=== PATIENT | female | born 1955 | race Caucasian/White ===

== ENCOUNTER 2018-06-04 22:41 | Inpatient (IN) | payer BC, MEDICAID ==
[~2018-06-04] VITALS: Ht 167.6 cm; Wt 150.1 kg
[2018-06-04 23:38] LABS: MEAN CORPUSCULAR HEMOGLOBIN 31.1 pg (27.0-34.8); MEAN CORPUSCULAR HGB CONC 32.1 g/dL (32.4-35.8); MEAN CORPUSCULAR VOLUME 96.7 fL (80-100); MEAN PLATELET VOLUME 9.7 fL (7.4-10.4); PLATELET COUNT 175 x10^3/uL (130-400); RED BLOOD COUNT 3.34 x10^6/uL (3.82-5.3); RED CELL DISTRIBUTION WIDTH 16.5 % (9.6-15.2)
[2018-06-04 23:45] LABS: ALANINE AMINOTRANSFERASE 17 U/L (12-78); ALBUMIN 2.7 g/dL (3.4-5.0); ANION GAP 7 mmol/L (5-15); CALCIUM 8.7 mg/dL (8.5-10.1); CHLORIDE 107 mmol/L (98-107); CREATININE 1.24 mg/dL (0.55-1.02)
[2018-06-04 23:49] LABS: ALKALINE PHOSPHATASE 109 U/L (45-117); BILIRUBIN,TOTAL 0.4 mg/dL (0.2-1.0); TOTAL PROTEIN 7.7 g/dL (6.4-8.2); TROPONIN I 0.019 ng/mL (0.000-0.045)
[2018-06-05 00:23] LABS: BASOPHILS # (AUTO) 0.21 x10^3/uL (0-0.1); BASOPHILS % (AUTO) 1 % (0-1); EOSINOPHILS % (AUTO) 0 % (1-7); LYMPHOCYTES # (AUTO) 0.68 x10^3/uL (1-3.4); LYMPHOCYTES % (AUTO) 4 % (22-44); MD SCAN; MONOCYTES # (AUTO) 0.71 x10^3/uL (0.2-0.8); MONOCYTES % (AUTO) 4 % (2-9); NEUTROPHILS # (AUTO) 17.73 x10^3/uL (1.8-6.8); NEUTROPHILS % (AUTO) 92 % (42-75)
[2018-06-05] MEDS ORDERED: LEVOFLOXACIN/PMX 500MG/100ML 100 ML IV SCH (01:30)
[2018-06-05] MEDS ORDERED: METO-282 PO (01:31)
[2018-06-05] MEDS ORDERED: LISI-424 PO (01:31)
[2018-06-05] MEDS ORDERED: SERT20OR PO ×2 (01:32→01:33)
[2018-06-05] MEDS ORDERED: TEMA7.5C2 PO (01:33)
[2018-06-05] MEDS ORDERED: LEVOFLOXACIN/PMX 500MG/100ML 100 ML ONE (01:33)
[2018-06-05] MEDS ORDERED: SILD10SU PO (01:34)
[2018-06-05 01:47] LABS: MICROSCOPIC INDICATED
[2018-06-05 01:48] LABS: CULTURE INDICATED? YES
[2018-06-05] MEDS ORDERED: hydrALAzine 20 MG/ML, 1ML IVPush PRN (02:30)
[2018-06-05] MEDS ORDERED: ACETAMINOPHEN 325 MG TABLET PO PRN (02:30)
[2018-06-05] MEDS ORDERED: morphine SULFATE 10 MG/ML, 1ML IVPush PRN (02:30)
[2018-06-05] MEDS ORDERED: SODIUM CHLORIDE 0.9% 1,000 ML IV SCH (02:30)
[2018-06-05] MEDS ORDERED: ONDANSETRON 2MG/ML, 2ML IVPush PRN (02:30)
[2018-06-05] MEDS ORDERED: DOCUSATE 100 MG CAPSULE PO PRN (02:30)
[2018-06-05] MEDS ORDERED: GUAIFENESIN/COD200MG-20MG/10ML LIQUID PO PRN (02:30)
[2018-06-05 03:46] VITALS: BP 176/69
[2018-06-05] MEDS: ASPIRIN 81 MG TABLET EC PO SCH (05:29)
[2018-06-05] MEDS: TORSEMIDE 20 MG TABLET PO SCH (08:13)
[2018-06-05] MEDS: CHOLECALCIFEROL 1,000 UNIT TABLET PO SCH (08:14)
[2018-06-05] MEDS: ASCORBIC ACID 500 MG TABLET PO SCH (08:14)
[2018-06-05] MEDS: SERTRALINE 100MG TABLET PO SCH (08:16)
[2018-06-05] MEDS: SILDENAFIL 20 MG TABLET PO SCH ×3 (08:24→20:13)
[2018-06-05] MEDS: LISINOPRIL 5 MG TABLET PO SCH (08:24)
[2018-06-05] MEDS: METOPROLOL TARTRATE 25 MG TABLET PO SCH ×2 (08:24→20:13)
[2018-06-05 08:26] VITALS: BP 113/64
[2018-06-05 13:19] VITALS: BP 118/55
[2018-06-05 15:07] LABS: ANION GAP 8 mmol/L (5-15); CALCIUM 8.1 mg/dL (8.5-10.1); CHLORIDE 107 mmol/L (98-107); CREATININE 0.93 mg/dL (0.55-1.02)
[2018-06-05 15:33] LABS: MEAN CORPUSCULAR VOLUME 96.7 fL (80-100); MEAN PLATELET VOLUME 11.1 fL (7.4-10.4); PLATELET COUNT 152 x10^3/uL (130-400); RED BLOOD COUNT 2.79 x10^6/uL (3.82-5.3); RED CELL DISTRIBUTION WIDTH 16.4 % (9.6-15.2)
[2018-06-05 15:35] LABS: HEMOGRAM NOTE RECHECKED
[2018-06-05 16:01] LABS: ABSOLUTE RETICS # 0.028 x10^6/uL (0.5-2.5); RED BLOOD COUNT 2.78 x10^6/uL (3.82-5.3); RETICULOCYTE COUNT % 1.01 % (0.5-1.5)
[2018-06-05 16:13] LABS: MD YES
[2018-06-05 16:15] LABS: <RBC MORPHOLOGY> NORMAL; BAND#(MANUAL) 0.24 x10^3/uL; BANDS%(MANUAL) 2 % (0-7); EOS#(MANUAL) 0.12 x10^3/uL (0.0-0.4); EOS% (MANUAL) 1 % (1-7); LYMPH#(MANUAL) 0.96 x10^3/uL (1-3.4); LYMPHS% (MANUAL) 8 % (22-44); SEG#(MANUAL) 10.68 x10^3/uL (1.8-6.8); SEGS% (MANUAL) 89 % (42-75)
[2018-06-05 16:16] LABS: <PLATELET ESTIMATE> ADEQUATE; <PLT MORPHOLOGY> NORMAL PLT MORPH
[2018-06-05] MEDS: LEVOFLOXACIN/PMX 750MG/150ML 150 ML IV SCH (20:12)
[2018-06-05] MEDS: ATORVASTATIN 80 MG TABLET PO SCH (20:13)
[2018-06-05] MEDS: RIVAROXABAN 20 MG TABLET PO SCH (20:13)
[2018-06-05 20:45] VITALS: BP 111/60
[2018-06-05] MEDS: TEMAZEPAM 30 MG CAPSULE PO PRN (22:10)
[2018-06-05] MEDS: MELATONIN 5 MG TABLET PO SCH (22:10)
[2018-06-06 02:10] VITALS: BP 99/56
[2018-06-06 05:35] LABS: ANION GAP 6 mmol/L (5-15); CALCIUM 8.1 mg/dL (8.5-10.1); CHLORIDE 107 mmol/L (98-107); CREATININE 0.94 mg/dL (0.55-1.02)
[2018-06-06 05:37] LABS: BASOPHILS # (AUTO) 0.03 x10^3/uL (0-0.1); BASOPHILS % (AUTO) 0 % (0-1); EOSINOPHILS # (AUTO) 0.22 x10^3/uL (0-0.4); EOSINOPHILS % (AUTO) 3 % (1-7); LYMPHOCYTES # (AUTO) 1.42 x10^3/uL (1-3.4); LYMPHOCYTES % (AUTO) 17 % (22-44); MD NO; MEAN CORPUSCULAR HEMOGLOBIN 32.6 pg (27.0-34.8); MEAN CORPUSCULAR HGB CONC 33.5 g/dL (32.4-35.8); MEAN CORPUSCULAR VOLUME 97.3 fL (80-100); MEAN PLATELET VOLUME 10.5 fL (7.4-10.4); MONOCYTES % (AUTO) 10 % (2-9); NEUTROPHILS # (AUTO) 5.77 x10^3/uL (1.8-6.8); NEUTROPHILS % (AUTO) 70 % (42-75); PLATELET COUNT 136 x10^3/uL (130-400); RED BLOOD COUNT 2.59 x10^6/uL (3.82-5.3); RED CELL DISTRIBUTION WIDTH 16.3 % (9.6-15.2)
[2018-06-06] MEDS: ASPIRIN 81 MG TABLET EC PO SCH (05:39)
[2018-06-06 05:47] LABS: HEMOGLOBIN A1C 6.2 % (4.2-6.3)
[2018-06-06 08:22] VITALS: BP 124/67
[2018-06-06] MEDS: CHOLECALCIFEROL 1,000 UNIT TABLET PO SCH (09:36)
[2018-06-06] MEDS: ASCORBIC ACID 500 MG TABLET PO SCH (09:37)
[2018-06-06] MEDS: SILDENAFIL 20 MG TABLET PO SCH ×3 (09:38→21:24)
[2018-06-06] MEDS: SERTRALINE 100MG TABLET PO SCH (09:38)
[2018-06-06] MEDS: METOPROLOL TARTRATE 25 MG TABLET PO SCH ×2 (09:39→21:23)
[2018-06-06] MEDS: LISINOPRIL 5 MG TABLET PO SCH (09:40)
[2018-06-06] MEDS: TORSEMIDE 20 MG TABLET PO SCH (09:43)
[2018-06-06] MEDS ORDERED: BISACODYL 10 MG SUPP PR PRN (12:30)
[2018-06-06 13:50] VITALS: BP 130/63
[2018-06-06] MEDS: LEVOFLOXACIN/PMX 750MG/150ML 150 ML IV SCH (20:09)
[2018-06-06] MEDS ORDERED: LEVOFLOXACIN 750 MG TABLET PO SCH (21:00)
[2018-06-06] MEDS: RIVAROXABAN 20 MG TABLET PO SCH (21:23)
[2018-06-06] MEDS: ATORVASTATIN 80 MG TABLET PO SCH (21:23)
[2018-06-06] MEDS: MELATONIN 5 MG TABLET PO SCH (21:24)
[2018-06-06] MEDS: TEMAZEPAM 30 MG CAPSULE PO PRN (21:24)
[2018-06-06 21:50] VITALS: BP 124/64
[2018-06-07 03:50] VITALS: BP 139/66
[2018-06-07] MEDS: ASPIRIN 81 MG TABLET EC PO SCH (05:58)
[2018-06-07 07:10] VITALS: BP 135/79
[2018-06-07] MEDS: TORSEMIDE 20 MG TABLET PO SCH (07:57)
[2018-06-07] MEDS: SILDENAFIL 20 MG TABLET PO SCH ×2 (09:11→16:25)
[2018-06-07] MEDS: METOPROLOL TARTRATE 25 MG TABLET PO SCH (09:13)
[2018-06-07] MEDS: ASCORBIC ACID 500 MG TABLET PO SCH (09:14)
[2018-06-07] MEDS: LISINOPRIL 5 MG TABLET PO SCH (09:14)
[2018-06-07] MEDS: CHOLECALCIFEROL 1,000 UNIT TABLET PO SCH (09:15)
[2018-06-07] MEDS: SERTRALINE 100MG TABLET PO SCH (09:15)
[2018-06-07] MEDS ORDERED: METO-93 PO (13:39)
[2018-06-07] MEDS ORDERED: SILD20TA PO (13:39)
[2018-06-07] MEDS ORDERED: ASCO500T6 PO (13:39)
[2018-06-07] MEDS ORDERED: MELA5TAB19 PO (13:39)
[2018-06-07] MEDS ORDERED: ACET325T14 PO (13:39)
[2018-06-07] MEDS ORDERED: TORS20TA PO (13:39)
[2018-06-07] MEDS ORDERED: LEVO750T26 PO (13:39)
[2018-06-07] MEDS ORDERED: ASPI81TA45 PO (13:39)
[2018-06-07] MEDS ORDERED: ATOR-2 PO (13:39)
[2018-06-07] MEDS ORDERED: LISI5TAB7 PO (13:39)
[2018-06-07] MEDS ORDERED: RIVA20TA PO (13:39)
[2018-06-07] MEDS ORDERED: SERT100T5 PO (13:39)
[2018-06-07] MEDS ORDERED: CHOL10003 PO (13:39)
[2018-06-07 15:42] VITALS: BP 151/68
== END 2018-06-07 18:16 | DRG 640 ==
LOC: ED 06-05 01:27 → EDIP 06-05 01:32 → ED 06-05 01:40 → 4NOR 06-05 03:00
PROVIDERS: ADMIT Internal Medicine; ATTEND Internal Medicine
DX: R62.7 Adult failure to thrive (principal); J15.9 Unspecified bacterial pneumonia; N39.0 Urinary tract infection, site not specified; I13.0 Hypertensive heart and chronic kidney disease with heart failure and stage 1 through stage 4 chronic kidney disease, or unspecified chronic kidney disease; J96.11 Chronic respiratory failure with hypoxia; Z68.43 Body mass index [BMI] 50.0-59.9, adult; B96.20 Unspecified Escherichia coli [E. coli] as the cause of diseases classified elsewhere; Z86.718 Personal history of other venous thrombosis and embolism; D50.9 Iron deficiency anemia, unspecified; E66.01 Morbid (severe) obesity due to excess calories; F32.9 Major depressive disorder, single episode, unspecified; W10.8XXA Fall (on) (from) other stairs and steps, initial encounter; S09.90XA Unspecified injury of head, initial encounter; E83.42 Hypomagnesemia; J98.6 Disorders of diaphragm; G47.33 Obstructive sleep apnea (adult) (pediatric); I50.812 Chronic right heart failure; I27.20 Pulmonary hypertension, unspecified; N18.2 Chronic kidney disease, stage 2 (mild); E11.22 Type 2 diabetes mellitus with diabetic chronic kidney disease; I25.10 Atherosclerotic heart disease of native coronary artery without angina pectoris; Z79.01 Long term (current) use of anticoagulants; Z82.0 Family history of epilepsy and other diseases of the nervous system; Y93.89 Activity, other specified; Y92.89 Other specified places as the place of occurrence of the external cause; Z88.8 Allergy status to other drugs, medicaments and biological substances
CPT/HCPCS: 36415; 71045; 80048; 80053; 81001; 82728; 83036; 83540; 83550; 83735; 84100; 84466; 84484; 85025; 85045; 87040; 87077; 87086; 87186; 96365; 96366; G0378; J1956; J7030